=== PATIENT | female | born 2000 | race Caucasian/White ===

== ENCOUNTER 2021-09-25 13:44 | Emergency (ER) | payer OTHER ==
[2021-09-25] MEDS ORDERED: Ibuprofen 600 MG TAB ONE (15:40)
== END 2021-09-25 15:40 | disposition home or self-care (01) ==
LOC: MADERS 13:44
DX: S39.012A Strain of muscle, fascia and tendon of lower back, initial encounter (principal); X50.9XXA Other and unspecified overexertion or strenuous movements or postures, initial encounter
CPT/HCPCS: 99283